=== PATIENT | male | born 1995 | race African-American/Black ===

== ENCOUNTER 2019-07-02 16:30 | Emergency (ER) | payer OTHER ==
--- NOTE | 2019-07-02 17:12 | ED ---
Altered Mental Status - HPI Summary HPI Summary: 24 year old M arriving via ambulance [facility] accompanied by 2 male corrections officers complains of altered mental status after inhaling synthetic cannabinoid at 14:30 07/02/2019. Patient states he was smoking cigarettes when he was suddenly told to get on the ground by corrections officers. Corrections officers thought patient was smoking K2 and noted altered mental status. Corrections officers called EMS. Patient was brought to the [facility] at [place], and patient was brought to the ED. Patient denies smoking K2. No injuries. No complaints. He states he has not been sick recently. He states he has been eating and drinking well. Patient denies fever, chills, erythema of eyes, sore throat, chest pain, shortness of breath, cough, abdominal pain, nausea/vomiting, dysuria, hematuria, myalgia, edema, rash, or dizziness. Medications reviewed. Patient states he takes psychiatric medications. Allergies reviewed. - History Of Current Complaint Chief Complaint: EDSubstanceAbuse Stated Complaint: OVERDOSE PER EMS Time Seen by Provider: 07/02/19 16:35 Hx Obtained From: Patient, Other: - corrections officers Onset/Duration: Resolved Timing: Constant Severity Currently: None Aggravating Factor(s): Nothing Alleviating Factor(s): Nothing Associated Signs And Symptoms: Positive: Negative - fever, chills, erythema of eyes, sore throat, chest pain, shortness of breath, cough, abdominal pain, nausea/vomiting, dysuria, hematuria, myalgia, edema, rash, or dizziness - Allergies/Home Medications Allergies/Adverse Reactions: Allergies Allergy/AdvReac Type Severity Reaction Status Date / Time No Known Allergies Allergy Verified 07/02/19 16:42 PMH/Surg Hx/FS Hx/Imm Hx Sensory History: Denies: Hx Deafness, Hx Hearing Aid EENT History: Denies: Hx Deafness, Hx Hearing Aid Psychiatric History: Reports: Hx Substance Abuse - Surgical History Surgical History: None Infectious Disease History: No Infectious Disease History: Denies: Traveled Outside the [place] in Last 30 Days - Family History Known Family History: Positive: Diabetes - father - Social History Alcohol Use: None Substance Use Comment - Amount & Last Used: pt reports none, 5 points reports K2 ingestion Hx Tobacco Use: Yes Smoking Status (MU): Heavy Every Day Tobacco Smoker Review of Systems Negative: Fever, Chills Negative: Erythema Negative: Sore Throat Negative: Chest Pain Negative: Shortness Of Breath, Cough Negative: Abdominal Pain, Vomiting, Nausea Negative: dysuria, hematuria Negative: Myalgia, Edema Negative: Rash Neurological: Negative - Dizziness Positive: Other - AMS, inhaling synthetic cannabinoid All Other Systems Reviewed And Are Negative: Yes Physical Exam - Summary Physical Exam Summary: Constitutional: Well-developed, Well-nourished, Alert. (-) Distressed Skin: Warm, Dry HENT: Normocephalic; Atraumatic Eyes: Conjunctiva normal Neck: Musculoskeletal ROM normal neck. (-) JVD, (-) Stridor, (-) Tracheal deviation Cardio: Rhythm regular, rate normal, Heart sounds normal; Intact distal pulses; The pedal pulses are 2+ and symmetric. Radial pulses are 2+ and symmetric. (-) Murmur Pulmonary/Chest wall: Effort normal. (-) Respiratory distress, (-) Wheezes, (-) Rales Abd: Soft, (-) tenderness, (-) Distension, (-) Guarding, (-) Rebound Musculoskeletal: (-) Edema Lymph: (-) Cervical adenopathy Neuro: Alert, Oriented x3 Psych: Mood and affect Normal Triage Information Reviewed: Yes Vital Signs On Initial Exam: Initial Vitals Temp Pulse Resp BP Pulse Ox 99.2 F 79 23 129/88 98 07/02/19 16:33 07/02/19 16:33 07/02/19 16:33 07/02/19 16:33 07/02/19 16:33 Vital Signs Reviewed: Yes Procedures - Sedation Patient Received Moderate/Deep Sedation with Procedure: No Diagnostics - Vital Signs Vital Signs Temp Pulse Resp BP Pulse Ox 07/02/19 17:00 73 12 97 07/02/19 16:35 76 26 129/88 97 07/02/19 16:33 99.2 F 79 23 129/88 98 - Laboratory Lab Statement: Any lab studies that have been ordered have been reviewed, and results considered in the medical decision making process. Altered Mental Statu Course/Dx - Course Course Of Treatment: 24 year old M from [facility] accompanied by 2 male corrections officers complains of altered mental status after inhaling synthetic cannabinoid at 14:30 07/02/2019. Patient states he was smoking cigarettes when he was suddenly told to get on the ground by corrections officers. Corrections officers thought patient was smoking K2 and noted altered mental status. Corrections officers called EMS. Patient was brought to the [facility] at [place], and patient was brought to the ED. No injuries. No complaints. Medications reviewed. Physical exam unremarkable. Patient was tachycardic and had mental status changes at the time of the incidence around 1425 today 07/02/2019. Blood pressure noted to be 182/108 at [place]. All of his symptoms and vital sign abnormalities have resolved upon arrival to the ED. Patient was consulted about avoiding cannabinoid exposure and use. He was instructed to follow up with substrance abuse and counseling in 3-5 days at [place]. Patient was instructed to return to Emergency Department for new or worsening symptoms. Patient understands and is agreeable to this plan. - Diagnoses Provider Diagnoses: Synthetic cannabinoid abuse Discharge ED - Sign-Out/Discharge Documenting (check all that apply): Patient Departure - Discharge Plan Condition: Stable Disposition: LAW ENFORCEMENT/COURT Patient Education Materials: Polysubstance Abuse (ED) Referrals: Alyx Patrick NP [Primary Care Provider] - 3 Days [place] [facility], [Z.BUSINESS, APPLICATION, OTHER] - Additional Instructions: Follow up with substance abuse and counseling in 3-5 days. Return to the Emergency Department for new or worsening symptoms. - Attestation Statements Document Initiated by Scribe: Yes Documenting Scribe: Tatiana Crow Provider For Whom Scribe is Documenting (Include Credential): Adrian Wang MD Scribe Attestation: Tatiana Roca, scribed for Adrian Wang MD on 07/02/19 at 1726. Status of Scribe Document: Ready
[2019-07-02 17:38] VITALS: BP 130/76
[2019-07-02 19:00] LABS: HIV 4th Generation Nonreactive (Nonreactive)
== END 2019-07-02 17:38 ==
LOC: ED 16:30
DX: F15.10 Other stimulant abuse, uncomplicated (principal); F17.210 Nicotine dependence, cigarettes, uncomplicated
CPT/HCPCS: 36415; 87389; 99282